=== PATIENT | female | born 1990 | race Caucasian/White ===

== ENCOUNTER 2018-03-23 09:42 | Emergency (ER) | payer OTHER ==
--- NOTE | 2018-03-23 10:27 | ED ---
Abdominal Pain/Female - HPI Summary HPI Summary: The pt is a 27 y/o female presenting to [facility] c/o L sided abdominal pain for two days worse today. The pain is rated 10/10 in intensity. She notes vomiting. The constant pain is aggravated by movement, sitting, and standing. She denies a hx of kidney stones. Her LNMP was in February 2018. The pt is on Depo Provera. - History of Current Complaint Chief Complaint: EDAbdPain Stated Complaint: ABD PAIN Time Seen by Provider: 03/23/18 10:21 Hx Obtained From: Patient, Family/Occ Therapy Asst - Mother ?: No Onset/Duration: Sudden Onset, Lasting Days - 2 days, Still Present, Worse Since - Today morning Severity Initially: Severe Severity Currently: Severe Pain Intensity: 10 Pain Scale Used: 0-10 Numeric Location: Flank - L flank Character: Sharp Aggravating Factor(s): Movement, Other: - Standing, sitting Associated Signs and Symptoms: Positive: Vomiting Allergies/Adverse Reactions: Allergies Allergy/AdvReac Type Severity Reaction Status Date / Time No Known Allergies Allergy Verified 03/23/18 12:07 PMH/Surg Hx/FS Hx/Imm Hx Previously Healthy: No Cardiovascular History: Denies: Hx Pacemaker/ICD History: Denies: Hx Kidney Stones Sensory History: Denies: Hx Hearing Aid Neurological History: Denies: Other Neuro Impairments/Disorders Psychiatric History: Reports: Other Psychiatric Issues/Disorders - Positive: claustrophobia Denies: Hx Panic Disorder - Cancer History Cancer Type, Location and Year: None reported - Surgical History Surgery Procedure, Year, and Place: BREAST REDUCTION. TUBES IN EARS - CHILD. ADNOIDS. GANGLION CYST - Lt HAND Xs 2 Infectious Disease History: No Infectious Disease History: Denies: Traveled Outside the [place] in Last 30 Days - Family History Known Family History: Positive: Cardiac Disease, Other - CA, Alzheimer's - Social History Occupation: Unemployed Lives: With Family Alcohol Use: None Substance Use Type: Reports: None Smoking Status (MU): Never Smoked Tobacco Review of Systems Negative: Fever Positive: Abdominal Pain, Vomiting All Other Systems Reviewed And Are Negative: Yes Physical Exam - Summary Physical Exam Summary: Appearance: The patient is well-nourished and in severe pain distress. Skin: The skin is warm and dry and skin color reflects adequate perfusion. HEENT: The head is normocephalic and atraumatic. The pupils are equal and reactive. The conjunctivae are clear and without drainage. Nares are patent and without drainage. Mouth reveals moist mucous membranes and the throat is without erythema and exudate. The external ears are intact. The ear canals are patent and without drainage. The tympanic membranes are intact. Neck: The neck is supple with full range of motion and non-tender. There are no carotid bruits. There is no neck vein distension. Respiratory: Chest is non-tender. Lungs are clear to auscultation and breath sounds are symmetrical and equal. Cardiovascular: Heart is regular rate and rhythm. There is no murmur or rub auscultated. There is no peripheral edema and pulses are symmetrical and equal. Abdomen: The abdomen is soft and tender to palpation in the LLQ. There are normal bowel sounds heard in all four quadrants and there is no organomegaly palpated. Musculoskeletal: There is no back tenderness noted. Extremities are non-tender with full range of motion. There is good capillary refill. There is no peripheral edema or calf tenderness elicited. Neurological: Patient is alert and oriented to person, place and time. The patient has symmetrical motor strength in all four extremities. Cranial nerves are grossly intact. Deep tendon reflexes are symmetrical and equal in all four extremities. Psychiatric: The patient has an appropriate affect and does not exhibit any anxiety or depression. Triage Information Reviewed: Yes Vital Signs On Initial Exam: Initial Vitals Temp Pulse Resp BP Pulse Ox 99.2 F 94 17 109/84 97 03/23/18 09:59 03/23/18 09:59 03/23/18 09:59 03/23/18 09:59 03/23/18 09:59 Vital Signs Reviewed: Yes Diagnostics - Vital Signs Vital Signs Temp Pulse Resp BP Pulse Ox 03/23/18 09:59 99.2 F 94 17 109/84 97 - Laboratory Result Diagrams: 03/23/18 10:56 03/23/18 10:56 Lab Statement: Any lab studies that have been ordered have been reviewed, and results considered in the medical decision making process. - CT Abd/ Pel CT CT Interpretation Completed By: Radiologist - IMPRESSION: Left hydronephrosis with 6 mm calculi in the proximal left ureter at the L3 transverse process level. Perinephric infiltration of fat is noted suggestive of calyceal rupture. The ED physician reviewed this radiology report. Re-Evaluation - Re-Evaluation First Eval Re-Evaluation Time: 11:35 Change: Improved - The pt is comfortable after receiving pain meds and is mildly tender in the LLQ. Second Eval Re-Evaluation Time: 12:50 Change: Improved - Discussed the Abd/ Pel Ct results with the pt. The pt feels much better. Third Eval Re-Evaluation Time: 13:13 Change: Worse Comment: The pt notes a return of the abd pain. Abdominal Pain Fem Course/Dx - Course Course Of Treatment: Ms. Stephenson presented complaining of severe left lower quadrant pain. She was bent over and the pain seemed to worsen when she tried to straighten up. She was equivocal and her history as to whether that movement aggravated the pain. She was very tender in the left lower quadrant. Labs were obtained and initially an ultrasound was ordered with a concern for torsion. However she improved dramatically with Toradol and Dilaudid and was only minimally tender if at all after. This pointed more to towards a stone and the ultrasound was canceled and a CT obtained. CT did reveal a proximal 6 mm left ureteral stone. Her UA did not show signs of infection. We do not have urology on-call today and given that she improved with initial pain medication and then again with Percocet when her pain returned, I recommended that she be discharged and follow as an outpatient. There is a reasonable chance that she will not be able to pass the stone and will need follow-up. - Diagnoses Provider Diagnoses: Kidney stones Discharge - Sign-Out/Discharge Documenting (check all that apply): Patient Departure - DC - Discharge Plan Condition: Stable Disposition: HOME Prescriptions: oxyCODONE/Acetamin 5/325 MG* [Percocet 5/325 TAB*] 1 tab PO Q6H PRN #20 tab MDD 4 PRN Reason: Pain Tamsulosin CAP* [Flomax CAP*] 0.4 mg PO DAILY #7 cap Patient Education Materials: Kidney Stones (ED) Referrals: Khurram Hill MD [Primary Care Provider] - 3 Days Rodolfo Foley MD [Medical Doctor] - As Soon As Possible Additional Instructions: Follow up with a urologist this week. Take 600mg Ibuprofen 3 times a day. - Billing Disposition and Condition Condition: STABLE Disposition: Home - Attestation Statements Document Initiated by Scribe: Yes Documenting Scribe: Abi Herr Provider For Whom Scribe is Documenting (Include Credential): Dr. Jake Cruz MD Scribe Attestation: I, Abi Herr , scribed for Dr. Jake Cruz MD on 03/23/18 at 2032. Scribe Documentation Reviewed: Yes Provider Attestation: The documentation as recorded by the scribeAbi accurately reflects the service I personally performed and the decisions made by me, Dr. Jake Cruz MD
[2018-03-23] MEDS ORDERED: NS 0.9% 1000 ML* 1,000 ML IV ONE (10:38)
[2018-03-23] MEDS ORDERED: Ondansetron INJ* 2 MG/ML VIAL IV ONE (10:40)
[2018-03-23] MEDS ORDERED: Ketorolac INJ* 30 MG/ML 1 ML VIAL IV PUSH ONE (10:40)
[2018-03-23] MEDS ORDERED: HYDROmorphone INJ* 1 MG/ML CARPUJECT SYRINGE IV ONE (10:40)
[2018-03-23] MEDS ORDERED: HYDROmorphone INJ1* 1 MG/ML SYRINGE ONE (10:46)
[2018-03-23 11:07] LABS: ABS Basophils 0 10^3/ul (0-0.2); ABS Eosinophils 0 10^3/ul (0-0.6); ABS Lymphocytes 1.1 10^3/ul (1.0-4.8); ABS Monocytes 0.8 10^3/ul (0-0.8); ABS Neutrophils 17.6 10^3/ul (1.5-7.7); ABS Nucleated RBC 0 10^3/ul; Eosinophil % 0 % (0-6); Hematocrit 39 % (35-47); Hemoglobin 12.6 g/dl (12.0-16.0); Lymphocyte % 5.5 % (25-47); Mean Corpuscular HGB Conc 33 g/dl (31-36); Mean Corpuscular Hemoglobin 27 pg (27-31); Mean Corpuscular Volume 84 fL (80-97); Mean Platelet Volume 8.6 um3 (7.4-10.4); Nucleated Red Blood Cells % 0; Platelet Count 307 10^3/ul (150-450); Red Cell Distribution Width 14 % (10.5-15); White Blood Count 19.6 10^3/ul (3.5-10.8)
[2018-03-23 11:23] LABS: EGFR Non-African American 55.5 (>60)
--- NOTE | 2018-03-23 12:24 | RAD ---
Indication: Left flank pain. CT of the abdomen and pelvis was performed without oral or IV contrast administration. Coronal and sagittal reconstructed images were obtained. There is left hydronephrosis with a calculi in the proximal left ureter measuring approximately 6 mm. This is located at approximately the level of the L3 transverse process. Perinephric infiltration of fat is noted suggestive of calyceal rupture. There is enlargement of the left kidney. The remainder of the left ureter is otherwise unremarkable. The right kidney demonstrates no hydronephrosis. The lung bases demonstrate no pleural fluid, nodules or masses. Heart is of normal size without evidence of pericardial effusion. Liver is normal in size. There are no focal lesions or intrahepatic ductal dilatation noted. The gallbladder demonstrates no calcified gallstones. No pericholecystic fluid or wall thickening is noted. The spleen is normal in size. The pancreas demonstrates no mass or pancreatic duct dilatation. The common duct is not dilated. No retroperitoneal lymphadenopathy is noted. No dilated loops of bowel are noted. CT of the pelvis demonstrates uterus and ovaries to be unremarkable. Urinary bladder is unremarkable. No hernias are noted. No dilated loops of bowel are noted. IMPRESSION: Left hydronephrosis with a 6 mm calculi in the proximal left ureter at the L3 transverse process level. Perinephric infiltration of fat is noted suggestive of calyceal rupture.
[2018-03-23] MEDS ORDERED: oxyCODONE/Acetamin 5/325 MG* TAB PO ONE (13:23)
[2018-03-23 13:49] LABS: Urine Appearance Cloudy; Urine Blood 2+ (Negative); Urine Color Yellow; Urine Ketones 1+ (Negative); Urine Protein Negative (Negative); Urine Red Blood Cell 2+(6-10/hpf) (Absent); Urine Specific Gravity 1.019 (1.010-1.030); Urine Urobilinogen Negative (Negative); Urine White Blood Cell Trace(0-5/hpf) (Absent)
[2018-03-23 14:50] VITALS: BP 128/87
== END 2018-03-23 14:49 | disposition home or self-care (01) ==
LOC: ED 09:42
DX: N20.0 Calculus of kidney (principal); R10.32 Left lower quadrant pain; R11.10 Vomiting, unspecified
CPT/HCPCS: 36415; 74176; 80053; 81003; 81015; 83605; 84702; 85025; 86140; 87086; 96374; 96375; 99282; A9270-GY; J1170; J1885; J2405

== ENCOUNTER 2018-04-27 12:42 | Day surgery (SDC) | payer OTHER ==
--- NOTE | 2018-04-23 23:11 | HP ---
CC: Dr. Khurram Hill * ADMITTING HISTORY AND PHYSICAL: DATE OF ADMISSION: 04/27/18 ADMITTING DIAGNOSES: 1. Calculus, left proximal ureter. 2. Left hydronephrosis. PLANNED PROCEDURE: Left stent insertion and shock wave lithotripsy of calculus , left ureter. SURGEON: Dr. Bishop. HISTORY OF PRESENT ILLNESS: Omaira Stephenson is a 27-year-old lady with a developmental disability, who has had episode of left-sided pain for the last 3 to 4 weeks secondary to a calculus in the left proximal ureter measuring 6-7 mm. PAST MEDICAL HISTORY: Unremarkable. PAST SURGICAL HISTORY: Significant for ear tubes as a child and breast reduction surgery. MEDICATIONS ON ADMISSION: None. ALLERGIES: No known drug allergies. FAMILY HISTORY: Negative for kidney stones. PHYSICAL EXAMINATION GENERAL: Reveals a pleasant healthy-appearing young lady. VITAL SIGNS: Blood pressure is 120/72, pulse 109 per minute (anxious), oxygen saturation 98% on room air. LUNGS: Clear bilaterally. CARDIOVASCULAR: Regular rate and rhythm. S1, S2. ABDOMEN: Soft with mild left flank tenderness. IMPRESSION: I had a detailed discussion with Omaira and her mother regarding the persistent left flank pain. I discussed the procedure of the left stent insertion and shock wave lithotripsy in detail. PLAN: Left stent insertion and shock wave lithotripsy of calculus, left ureter. [id number]/[facility] #: [id number] MTDD
[~2018-04-27 12:42] MED LIST: Buffered Lidocaine 0.9% SYRIN* 5 ML/SYR SYRINGE INTRADERM ONE; Buffered Lidocaine 0.9% SYRIN* 5 ML/SYR SYRINGE ONE; Dexamethasone TAB* 4 MG ONE; Dexamethasone TAB* 4 MG PO ONE; Famotidine IV* 10 MG/ML 2 ML (20 mg) IV ONE; Famotidine IV* 10 MG/ML 2 ML (20 mg) ONE; cefTRIAXone(*) 2 GM ADDV.VIAL IVPB ONE
[2018-04-27] MEDS ORDERED: oxyCODONE/Acetamin 5/325 MG* TAB PO PRN (14:09)
[2018-04-27] MEDS ORDERED: Naloxone* 0.4 MG/ML 1 ML VIAL IV PRN (14:09)
[2018-04-27] MEDS ORDERED: DiMENhydriNATE IV* 50 MG/ML VIAL IV PUSH PRN (14:09)
[2018-04-27] MEDS ORDERED: Ondansetron INJ* 2 MG/ML VIAL IV PRN (14:09)
[2018-04-27] MEDS ORDERED: fentaNYL* 50 MCG/ML 2 ML VIAL (100 MCG VIAL) IV PRN (14:09)
--- NOTE | 2018-04-27 14:12 | RAD ---
HISTORY: PREOP LEFT RENAL CALCULI ESWL COMPARISONS: April 15, 2018 VIEWS: Frontal views of the abdomen. FINDINGS: BOWEL: There is a nonobstructive bowel gas pattern. There is a large amount of stool within the colon. CALCULI: There is a stable calculus overlying the left hemiabdomen measuring up to 0.3 cm in size. BONES AND SOFT TISSUES: There are no osseous abnormalities. OTHER FINDINGS: The lung bases are clear. There is no subphrenic gas. IMPRESSION: STABLE LEFT NEPHROLITHIASIS
[2018-04-27] MEDS ORDERED: fentaNYL* 50 MCG/ML 2 ML VIAL (100 MCG VIAL) ONE ×3 (14:14→15:22)
[2018-04-27] MEDS ORDERED: Midazolam* 1 MG/ML 5 ML VIAL (5 MG) ONE (14:14)
[2018-04-27] MEDS ORDERED: Lidocaine 2% PF * 5 ML VIAL ONE (14:15)
[2018-04-27] MEDS ORDERED: Propofol* 10 MG/ML 20 ML BTL IV PUSH ONE (14:15)
[2018-04-27] MEDS ORDERED: Ondansetron INJ* 2 MG/ML VIAL ONE (14:15)
[2018-04-27] MEDS ORDERED: Iohexol 180 (CONTRAST) 10 ML SDV IV ONE (14:41)
[2018-04-27] MEDS ORDERED: Furosemide IV* 10 MG/ML 2 ML VIAL (20 MG) ONE (15:16)
[2018-04-27 17:02] VITALS: BP 128/87
--- NOTE | 2018-04-27 17:40 | RAD ---
INDICATION: Left renal calculus COMPARISON: Most recent KUB is dated June 27, 2018 TECHNIQUE: 3 views the abdomen were obtained. FINDINGS: Overlying the collecting system of the right kidney there are faint punctate calcifications. A 5 mm calcification overlying the left renal collecting system is not well visualized on this KUB. There are no large calcifications overlying either ureter or the urinary bladder. IMPRESSION:FAINT PUNCTATE CALCIFICATIONS ARE SEEN OVERLYING THE RIGHT RENAL COLLECTING SYSTEM.
--- NOTE | 2018-04-27 23:37 | OP ---
CC: Dr. Khurram Hill * DATE OF OPERATION: 04/27/18 - [facility] DATE OF : 89 SURGEON: Pedro Bishop MD ANESTHESIOLOGIST: Dr. Estrella. ANESTHESIA: General. PRE-OP DIAGNOSIS: Calculus, left proximal ureter. POST-OP DIAGNOSIS: Calculus, left proximal ureter. OPERATIVE PROCEDURE: Shock wave lithotripsy of calculus, left ureter. COMPLICATIONS: None. POSTOPERATIVE CONDITION: Stable. INDICATIONS: Omaira Stephenson is a 27-year-old lady who has had a persistent calculus in the left proximal ureter causing intermittent left flank pain. She is now being brought in for lithotripsy. DESCRIPTION OF PROCEDURE: After induction of general anesthesia, the patient was placed in lithotripsy table in supine position. The calculus which was in the left proximal ureter was identified using fluoroscopy. Shock wave lithotripsy was commenced at a rate of 60 shocks per minute. Periodic imaging revealed good localization and a total of 2000 shocks were administered. I was prepared to do a left stent insertion if necessary, but due to near complete fragmentation of the calculus on fluoroscopy I elected to hold off on a stent insertion and the patient tolerated the procedure satisfactorily and was transferred back to the recovery area in stable condition. [id number]/[facility]PS #: [id number] MTDD
== END 2018-04-27 17:14 | disposition home or self-care (01) ==
LOC: OR 12:42
PROVIDERS: ATTEND Urology
DX: N13.2 Hydronephrosis with renal and ureteral calculous obstruction (principal); F79 Unspecified intellectual disabilities; E66.9 Obesity, unspecified
CPT/HCPCS: 74018; 81025; J0696; J1940; J2250; J2405; J2704; J3010; J8540

== ENCOUNTER → 2018-12-11 07:10 | Day surgery (SDC) | payer OTHER ==
--- NOTE | 2018-12-03 18:51 | HP ---
CC: Dr. Khurram Hill * ADMITTING HISTORY AND PHYSICAL: DATE OF ADMISSION: 12/11/18 ADMITTING DIAGNOSIS: Calculus, left proximal ureter. PLANNED PROCEDURE: Left ureteroscopy, possible laser, and stent replacement. SURGEON: Dr. Bishop. HISTORY OF PRESENT ILLNESS: Omaira Stephenson is a 28-year-old lady with a history of left renal and ureteral calculi. She had undergone shockwave lithotripsy in April of 2018 and then had subsequently presented with severe left flank pain and had undergone left stent insertion on 10/20/18. Recent x-ray revealed a persistent calculus in the left proximal ureter and she is now being brought in for left ureteroscopy, possible laser, and stent replacement. PAST MEDICAL HISTORY: Significant for developmental disability. PAST SURGICAL HISTORY: Significant for left stent insertion, shockwave lithotripsy of left renal calculus, bilateral breast reduction surgery, and placement of ear tubes as a child. MEDICATIONS ON ADMISSION: None. ALLERGIES: No known drug allergies. FAMILY HISTORY: Negative for stones. SOCIAL HISTORY: Smoking history: She is a nonsmoker. REVIEW OF SYSTEMS: She denies any chest pain or shortness of breath. There is no history of diabetes mellitus or any other major systemic illness. PHYSICAL EXAMINATION GENERAL: Reveals a pleasant, young, anxious lady, accompanied by her mother. VITAL SIGNS: Blood pressure is 120/72, pulse 109 per minute and regular, oxygen saturation 98% on room air, temperature 96.5. LUNGS: Clear bilaterally. CARDIOVASCULAR: Regular rate and rhythm. S1, S2. ABDOMEN: Soft with left flank tenderness. IMPRESSION: A 28-year-old with calculus left proximal ureter. PLAN: Planned procedure is left ureteroscopy, possible laser, and stent replacement. [id number]/[facility] #: [id number] [facility]
[~2018-12-11 07:10] MED LIST changes: -Buffered Lidocaine 0.9% SYRIN* 5 ML/SYR SYRINGE INTRADERM ONE; -Buffered Lidocaine 0.9% SYRIN* 5 ML/SYR SYRINGE ONE; +Buffered Lidocaine 1% SYRIN* 1 ML/SYRINGE INTRADERM ONE; +DiMENhydriNATE IV* 50 MG/ML VIAL IV PUSH PRN; +HYDROmorphone INJ1* 1 MG/ML SYRINGE IV PRN; +Iohexol 180 (CONTRAST) 10 ML SDV IV ONE; +KETAMINE HCL* 50 MG/ML 10 ML VIAL ONE; +Lactated Ringers 1000 ML Bag* 1,000 ML IV SCH; +Levalbuterol 0.63MG/3ML NEB* UNIT OF USE INH ONE; +Lidocaine 2% PF * 5 ML VIAL ONE; +Metoprolol Tartrate IV* 1 MG/ML 5 ML VIAL ONE; +Midazolam* 1 MG/ML 5 ML VIAL (5 MG) ONE; +Naloxone* 0.4 MG/ML 1 ML VIAL IV PRN; +Ondansetron ODT TAB* 4 MG ONE; +Ondansetron TAB* 4 MG PO ONE; +PROCHLORPERAZINE INJ 5 MG/ML 2 ML VIAL IV PRN; +Propofol* 10 MG/ML 20 ML BTL ONE; +Scopolamine 1.5 mg* PATCH TRANSDERM PRN; +Scopolamine PATCH Remove* 1 NOTE MISC PATCH OFF ONE; +fentaNYL* 50 MCG/ML 2 ML VIAL (100 MCG VIAL) ONE; +oxyCODONE/Acetamin 5/325 MG* TAB ONE; +oxyCODONE/Acetamin 5/325 MG* TAB PO PRN
[2018-12-11] MEDS: fentaNYL* 50 MCG/ML 2 ML VIAL (100 MCG VIAL) IV PRN ×3 (10:00→10:19)
[2018-12-11 11:04] VITALS: BP 118/83
--- NOTE | 2018-12-11 23:05 | OP ---
OPERATIVE SUMMARY: DATE OF OPERATION: 12/11/18 SURGEON: Dr. Bishop. ANESTHESIOLOGIST: Dr. Louis. ANESTHESIA: General. PRE-OP DIAGNOSES: 1. Left hydronephrosis. 2. Calculus, left proximal ureter. POST-OP DIAGNOSES: 1. Left hydronephrosis. 2. Calculus, left proximal ureter. OPERATIVE PROCEDURES: 1. Cystoscopy. 2. Left stent removal. 3. Left retrograde pyelogram. 4. Left ureteroscopy and stone extraction and left stent insertion. COMPLICATIONS: None. POSTOPERATIVE CONDITION: Stable. STENT USED: An 8-Mongolian stent, left ureter. OPERATIVE FINDINGS: Partially fragmented calculus, left ureter with persistent 5 to 6 mm fragment an d additional smaller fragment in the left ureter causing left hydronephrosis. INDICATIONS: Omaira Stephenson is a 28-year-old lady who had previously undergone lithotripsy for a calcu angie in the left kidney. She had then developed hydronephrosis secondary to a large obstructing fragm ent and had undergone urgent left stent insertion. She is now being brought in for ureteroscopy for definitive treatment of the calculus. DESCRIPTION OF PROCEDURE: After induction of general anesthesia, the patient was placed on the opera ting table in dorsal lithotomy position. Sequential compression devices were in place and functionin g. Initial cystoscopy revealed a normal- appearing bladder. The previously placed stent was removed . Left retrograde pyelogram revealed left hydronephrosis. A 6-Mongolian semi-rigid ureteroscope was in troduced and advanced under direct vision. In the proximal ureter, there was approximately 6 mm calc ulus with many smaller additional fragments noted adjacent to it. Using a 3-prong grasper, the large st fragment, which was about 6 mm, was carefully removed and sent for analysis. All of the smaller f ragments were also removed and at the end, I could not visualize any sizeable fragment in the ureter. The ureteroscope was carefully withdrawn under direct vision and an 8-Mongolian stent was introduced an d positioned under fluoroscopy with good proximal and distal positioning obtained. My plan is to silvia ve the stent in for a few weeks since she had the calculus impacted in that location for a while, whi ch puts her at higher risk for a stricture. The patient tolerated the procedure satisfactorily and was transferred back to the recovery area in s table condition. It should be noted that due to the patient's age and gender minimal fluoroscopy was used and also ext ra shielding was used on the back, especially to cover the right side, and care was taken to keep use of the fluoroscopic services to a minimum. [id number]/[facility] #: [id number]
== END | disposition home or self-care (01) ==
LOC: OR 07:10
PROVIDERS: ATTEND Urology
DX: N13.2 Hydronephrosis with renal and ureteral calculous obstruction (principal); J45.909 Unspecified asthma, uncomplicated
CPT/HCPCS: 74018; 74420; 81025; 82365; 88300; A9270-GY; C1876; J0696; J2250; J2704; J3010; J3490; J8540

== ENCOUNTER 2019-02-24 04:48 | Inpatient (IN) | payer OTHER ==
[2019-02-24] MEDS ORDERED: Morphine 4 MG/ML VIAL (1 ml) 4 MG/ML VIAL IV ONE ×2 (05:20→07:39)
[2019-02-24] MEDS ORDERED: Ketorolac INJ* 30 MG/ML 1 ML VIAL IM ONE (05:20)
--- NOTE | 2019-02-24 05:25 | ED ---
Abdominal Pain/Female - HPI Summary HPI Summary: A 28 y/o female brought in by [facility] ambulance and accompanied by her mother presents to [facility] with a chief complaint of abdominal pain since around 00:00 today. The patient has a Hx of kidney stones and reports current bilateral flank pain. She also notes that she has a Hx of a smaller gallstone. Per mother , the patient has had some N/V. - History of Current Complaint Chief Complaint: EDAbdPain Stated Complaint: STOMACH/BACK PAIN PER MOTHER Time Seen by Provider: 02/24/19 05:18 Hx Obtained From: Patient, Family/Avionics Systems Repairer, EMS Onset/Duration: Sudden Onset, Lasting Hours, Still Present Timing: Constant Severity Initially: Severe Severity Currently: Severe Pain Intensity: 10 Pain Scale Used: 0-10 Numeric Location: Flank Radiates: No Character: Other: - unable to describe Aggravating Factor(s): Nothing Alleviating Factor(s): Nothing Associated Signs and Symptoms: Positive: Nausea, Vomiting. Negative: Fever Allergies/Adverse Reactions: Allergies Allergy/AdvReac Type Severity Reaction Status Date / Time No Known Allergies Allergy Verified 12/11/18 07:44 Home Medications: Home Medications NK [No Home Medications Reported] 02/24/19 [History Confirmed 02/24/19] PMH/Surg Hx/FS Hx/Imm Hx Cardiovascular History: Denies: Hx Pacemaker/ICD Respiratory History: Reports: Hx Asthma - RESCUE INHALER History: Reports: Hx Kidney Stones - CURRENTLY. LT STENT 10/20/18. Sensory History: Reports: Hx Contacts or Glasses - GLASSES Denies: Hx Hearing Aid Opthamlomology History: Reports: Hx Contacts or Glasses - GLASSES Neurological History: Reports: Hx Seizures - ONLY A , Other Neuro Impairments/Disorders - MOM REPORT LEARNING DISABILITY- TROUBLE UNDERSTANDING WHAT IS BEING TOLD Psychiatric History: Reports: Other Psychiatric Issues/Disorders - Positive: claustrophobia Denies: Hx Panic Disorder - Cancer History Cancer Type, Location and Year: None reported - Surgical History Surgery Procedure, Year, and Place: BREAST REDUCTION. TUBES IN EARS - CHILD. ADENOIDS. GANGLION CYST - Lt HAND Xs 2. LEFT STENT [facility] 2019 Hx Anesthesia Reactions: No Infectious Disease History: No Infectious Disease History: Denies: Traveled Outside the [place] in Last 30 Days - Family History Known Family History: Positive: Cardiac Disease, Other - CA, Alzheimer's - Social History Alcohol Use: None Substance Use Type: Reports: None Smoking Status (MU): Never Smoked Tobacco Have You Smoked in the Last Year: No Review of Systems Negative: Fever Positive: Abdominal Pain, Vomiting, Nausea Positive: flank pain - bilateral All Other Systems Reviewed And Are Negative: Yes Physical Exam - Summary Physical Exam Summary: Constitutional: Well-developed, Well-nourished, Appears to be uncomfortable. Alert. (-) Distressed Skin: Warm, Dry HENT: Normocephalic; Atraumatic Eyes: Conjunctiva normal Neck: Musculoskeletal ROM normal neck. (-) JVD, (-) Stridor, (-) Tracheal deviation Cardio: Rhythm regular, rate normal, Heart sounds normal; Intact distal pulses; The pedal pulses are 2+ and symmetric. Radial pulses are 2+ and symmetric. (-) Murmur Pulmonary/Chest wall: Effort normal. (-) Respiratory distress, (-) Wheezes, (-) Rales Abd: Soft, (+) bilateral CVA tenderness, (-) Distension, (-) Guarding, (-) Rebound Musculoskeletal: (-) Edema Lymph: (-) Cervical adenopathy Neuro: Alert, Oriented x3 Psych: anxious Triage Information Reviewed: Yes Vital Signs On Initial Exam: Initial Vitals Temp Pulse Resp BP Pulse Ox 98.2 F 95 18 189/106 98 02/24/19 04:56 02/24/19 04:56 02/24/19 04:56 02/24/19 04:56 02/24/19 04:56 Vital Signs Reviewed: Yes Diagnostics - Vital Signs Vital Signs Temp Pulse Resp BP Pulse Ox 02/24/19 04:56 98.2 F 95 18 189/106 98 - Laboratory Result Diagrams: 02/24/19 05:37 02/25/19 05:41 Lab Statement: Any lab studies that have been ordered have been reviewed, and results considered in the medical decision making process. Abdominal Pain Fem Course/Dx - Course Course Of Treatment: A 28 y/o female brought in by [facility] ambulance and accompanied by her mother presents to [facility] with a chief complaint of abdominal pain since around 00:00 today. The patient has a Hx of kidney stones and reports current bilateral flank pain. The physical exam revealed that the patient was very anxious and appeared to be uncomfortable, bilateral CVA tenderness. In the ED course the patient was given Sodium Chloride IV, Toradol IV and Morphine IV. Blood work and chemistries obtained. WBC of 20.8 at 05:37. This patient will be signed out from Dr. Lamb to Dr. Felder upon shift change at 07:00 02/24/[address] abdomen/pelvis. - Diagnoses Provider Diagnoses: Cholecystitis Discharge - Sign-Out/Discharge Documenting (check all that apply): Sign-Out Patient Signing out patient TO: Torres Felder - pending CT abdomen/pelvis Patient Received Moderate/Deep Sedation with Procedure: No - Discharge Plan Condition: Stable Disposition: ADMITTED TO [facility] - Billing Disposition and Condition Condition: STABLE Disposition: Admitted to [facility] - Attestation Statements Document Initiated by Anton: Yes Documenting Scribe: Pastor Brito Provider For Whom Anton is Documenting (Include Credential): Yue Howell MD Scribe Attestation: Pastor Bruce, scribed for Yue Lamb MD on 02/25/19 at 0747. Scribe Documentation Reviewed: Yes Provider Attestation: The documentation as recorded by the Pastor hobbs accurately reflects the service I personally performed and the decisions made by , Yue Lamb MD Status of Scribe Document: Viewed
[2019-02-24 05:48] LABS: ABS Lymphocytes 1.7 10^3/ul (1.0-4.8); ABS Monocytes 0.7 10^3/ul (0-0.8); ABS Neutrophils 18.3 10^3/ul (1.5-7.7); Eosinophil % 0.1 %; Hematocrit 39 % (35-47); Hemoglobin 12.7 g/dL (12.0-16.0); Lymphocyte % 8.1 %; Mean Corpuscular HGB Conc 33 g/dL (31-36); Mean Corpuscular Hemoglobin 27 pg (27-31); Mean Corpuscular Volume 82 fL (80-97); Mean Platelet Volume 7.7 fL (7.4-10.4); Platelet Count 403 10^3/uL (150-450); Red Blood Count 4.77 10^6 /uL (3.70-4.87); Red Cell Distribution Width 15 % (10-15); White Blood Count 20.8 10^3/uL (3.5-10.8)
[2019-02-24 06:04] LABS: ALT 10 U/L (7-52); AST 15 U/L (13-39); Albumin 4.3 g/dL (3.2-5.2); Alkaline Phosphatase 111 U/L (34-104); Anion Gap 9 mmol/L (2-11); BUN/Creatinine Ratio 9.2 (8-20); Blood Urea Nitrogen 8 mg/dL (6-24); C Reactive Protein 19.98 mg/L (<8.01); CO2 Carbon Dioxide 23 mmol/L (22-32); Calcium 9.2 mg/dL (8.6-10.3); Chloride 106 mmol/L (101-111); EGFR African American 93.8 (>60); EGFR Non-African American 77.5 (>60); Globulin 4.3 g/dL (2-4); Glucose 122 mg/dL (70-100); Potassium 3.7 mmol/L (3.5-5.0); Sodium 138 mmol/L (135-145); Total Protein 8.6 g/dL (6.4-8.9)
[2019-02-24] MEDS ORDERED: NS 0.9% 1000 ML** 1,000 ML IV.FLUID IV ONE (06:04)
[2019-02-24 06:09] LABS: HCG Pregnancy < 0.60 mIU/mL
--- NOTE | 2019-02-24 07:14 | ED ---
Progress - Progress Note Progress Note: This pt is a sign out from Dr. Arroela to Dr. Felder at shift change [address] A/P. - Results/Orders Results/Orders: CT A/P shows the followin. Cholecystitis. Dilated common bile duct. 2. No stones in the kidneys, ureters, or urinary bladder. No hydronephrosis or hydroureter. ED physician has reviewed this report. Gallbladder US found the following: Dilated gallbladder with multiple gallstones, gallbladder wall measuring 0.6 cm and is positive sonographic Hoffmann's sign. ED physician has reviewed this report. Course/Dx - Course Course Of Treatment: This pt is a sign out from Dr. Arreola to Dr. Felder at shift change 0700 02/24/[address] A/P. The pt complained of intense pain and was given a one time dose of morphine 4mg IV at 0739. CT A/P shows the followin. Cholecystitis. Dilated common bile duct. 2. No stones in the kidneys, ureters, or urinary bladder. No hydronephrosis or hydroureter. Gallbladder US found the following: Dilated gallbladder with multiple gallstones, gallbladder wall measuring 0.6. cm and is positive sonographic Hoffmann's sign. Dr. Mcqueen, surgery, was consulted at [address] A/P findings to discuss a surgery to remove the pt's gallbladder. He will evaluate the pt in an hour. Dr. Mcqueen stated at 1015 that the pt required a gallbladder US before he could make a final decision. Case discussed with hospitalist. I discussed results with patient. The patient agrees with this plan. This pt was admitted to [facility] with a Dx of Cholecystitis. - Diagnoses Provider Diagnoses: Cholecystitis - Provider Notifications Discussed Care Of Patient With: Goldy Mcqueen Time Discussed With Above Provider: 08:28 Instructed by Provider To: Admit As Inpatient - Dr. Mcqueen, surgery, was consulted at [address] A/P findings to discuss a surgery to remove the pt's gallbladder. He will evaluate the pt in an hour. Dr. Mcqueen stated at 1015 that the pt required a gallbladder US before he could make a final decision. The pt was admitted to [facility] by Dr. Mcqueen for further investigation including a possible surgery. Admit/Transition Orders Completed By ED Provider: Yes Discharge - Sign-Out/Discharge Documenting (check all that apply): Patient Departure - admitted Patient Received Moderate/Deep Sedation with Procedure: No - Discharge Plan Condition: Stable Disposition: ADMITTED TO [facility] - Billing Disposition and Condition Condition: STABLE Disposition: Admitted to [facility] - Attestation Statements Document Initiated by Scribe: Yes Documenting Scribe: Bk Carballo Provider For Whom Scribe is Documenting (Include Credential): Torres Felder MD Scribe Attestation: Bk Bruce, scribed for Torres Felder MD on 02/24/19 at 1803. Scribe Documentation Reviewed: Yes Provider Attestation: The documentation as recorded by the Bk hobbs accurately reflects the service I personally performed and the decisions made by Torres castillo MD Status of Scribe Document: Viewed
[2019-02-24] MEDS ORDERED: Piperacillin/Tazobac ADVAN(*) 3.375 GM in NS 0.9% 100 ML* 100 ML IVPB ONE (08:28)
[2019-02-24 10:06] LABS: Urine Appearance Cloudy; Urine Bilirubin Negative (Negative); Urine Blood Negative (Negative); Urine Color Yellow; Urine Glucose Negative (Negative); Urine Ketones Trace (Negative); Urine Nitrite Negative (Negative); Urine Protein Negative (Negative); Urine Specific Gravity 1.013 (1.010-1.030); Urine Urobilinogen Negative (Negative)
[2019-02-24] MEDS ORDERED: fentaNYL* 50 MCG/ML 2 ML VIAL (100 MCG VIAL) IV SLOW PU ONE (11:25)
--- NOTE | 2019-02-24 11:48 | HP ---
CC: [facility]; CRISTOBAL Ferreira; [facility], Dr. Cielo Kovacs; Dr. Pedro zelaya HISTORY AND PHYSICAL: DATE OF ADMISSION: 02/24/19 PRIMARY CARE DOCTOR: CRISTOBAL Paul HISTORY OF PRESENT ILLNESS: I was contacted by the emergency room staff regarding Ms. Stephenson, a 28-ye ar-old female, who presented with 1-day history of epigastric pain accompanied with nausea and vomiti ng. The pain started yesterday afternoon when the patient and her mother were shopping. It worsened by ev ening. She was unable to sleep and by 4 a.m., called the ambulance, presented to the emergency room. Pain was not relieved with movement or by lying still. Pain relieved minimally with narcotics. Cu rrently, the pain does radiate to the back and the back is the primary discomfort. She describes the pain in the upper abdomen, nonradiating to the shoulder or chest, but only to the back. The patient had similar symptoms in the past, mostly this year, where she was diagnosed with nephroli thiasis and went to the operating room on 2 occasions for this purpose. Surgery was consulted on adm ission in October and the patient was noted to have both kidney stones and gallstones. Ultrasound was reviewed at that time and showed gallstone at the neck of the gallbladder. The patient does not define any exacerbating features or alleviating features. Again, it is accompani ed with nausea, vomiting, decreased appetite, although the patient's appetite is returning at this po int. No constipation or diarrhea. PAST MEDICAL HISTORY: Kidney stones, asthma, and developmental delay. PAST SURGICAL HISTORY: Bilateral breast reduction, tympanoplasty tubes as a child, and the lithotrip sy earlier this year. MEDICATION LIST: Reviewed and includes no medications. ALLERGIES: She has no known drug allergies. FAMILY HISTORY: Obtained. SOCIAL HISTORY: Nonsmoker. Lives with her mother, developmental delay. Denies IV drug abuse. She is unemployed. REVIEW OF SYSTEMS: On review of systems, no shortness of breath or chest pain. No jaundice-type sym ptoms. No fever, but she was experiencing chills. No shortness of breath or chest pain. No cardiov ascular disease. Abdominal pain as described. Decreased appetite. No dysuria or hematuria. No endo crine disorders. No bleeding or clotting disorders. Developmental delay, but does not see a psychia trist. No headache. PHYSICAL EXAMINATION GENERAL: Alert and oriented x3, in mild distress. VITAL SIGNS: She is afebrile. Her heart rate is in 90s to 100s. Normotensive. O2 sat 100 on room a ir. HEAD, EYES, EARS, NOSE, AND THROAT: Normocephalic, atraumatic. Sclerae anicteric. Mucous membranes are dry. NECK: No lymphadenopathy. ABDOMEN: Soft, obese, tender diffusely, but mostly in the right upper quadrant and epigastrium. Que stionable positive Hoffmann's, although the patient is significantly moving around. She has CVA tender ness bilaterally. She has no hernias or masses. RECTAL EXAM: Not performed. EXTREMITIES: Within normal limits without calf tenderness. VAGINAL EXAM: Not performed. DIAGNOSTIC STUDIES/LAB DATA: Labs reviewed show white count of 20. Chemistry panel shows elevated CRP, normal bilirubin, mildly elevated alk phos. The patient's urinalysis was normal with trace keto richard. The patient underwent a CAT scan of the abdomen and pelvis, noncontrast. These images as well as rep ort reviewed. No evidence of kidney stone or hydronephrosis. The patient did have notable inflammato ry changes around the gallbladder with thickening. Common bile duct measured 1.5 cm, but tapers to m ore normal caliber. IMPRESSION: A 28-year-old female with significant pain, who shows signs of systemic inflammatory res ponse syndrome with tachycardia and elevated white blood cell count, who may be suffering with acute cholecystitis. The differential diagnosis does include nephrolithiasis. Recommended a urinalysis an d it was described as above. Also, we would like the patient to undergo an ultrasound of the gallbla dder just to see regarding gallstones. I did review ultrasound from earlier this year that did show gallstones and overall, I do believe the patient is suffering with acute cholecystitis, but we will c ontinue additional workup and look towards surgical intervention with laparoscopic cholecystectomy if need be. This was discussed with both patient and mother. Her mother who is her caregiver had to g o home to get some sleep, but we will be discussing with her the plan going forward. [id number]/[facility] #: [id number]
[2019-02-24] MEDS ORDERED: Ondansetron INJ* 2 MG/ML VIAL IV PRN (12:02)
[2019-02-24] MEDS: HYDROmorphone INJ1* 1 MG/ML SYRINGE IV SLOW PU PRN ×2 (12:52→13:45)
[2019-02-24] MEDS ORDERED: Lactated Ringers 1000 ML Bag* 1,000 ML IV SCH ×2 (13:00→14:00)
[2019-02-24] MEDS ORDERED: Buffered Lidocaine 1% SYRIN* 1 ML/SYRINGE INTRADERM ONE (13:02)
[2019-02-24] MEDS ORDERED: Midazolam* 1 MG/ML 2 ML VIAL (2 MG) ONE (13:58)
[2019-02-24] MEDS ORDERED: fentaNYL* 50 MCG/ML 2 ML VIAL (100 MCG VIAL) ONE ×3 (13:58→16:02)
[2019-02-24] MEDS ORDERED: Famotidine IV* 10 MG/ML 2 ML (20 mg) ONE (14:02)
--- NOTE | 2019-02-24 14:03 | PN ---
Progress Note - Progress Note Date of Service: 02/24/19 SOAP: Subjective: Pt seen and and additional workup evaluated. normal UA US: c/w acute jaspal Continued abdo pain Objective: Temp Pulse Resp BP Pulse Ox 98.3 F 86 16 161/94 98 02/24/19 13:36 02/24/19 13:36 02/24/19 13:45 02/24/19 13:36 02/24/19 13:36 Abdo: soft/ tender Assessment: acute cholecystitis; dilated CBD, but normal TB Plan: laparoscopic cholecystectomy; R/B/A discussed and pt wishes to proceed admit overnight labs in am
[2019-02-24] MEDS ORDERED: Bupivacaine 0.25% W/EPI* 10 ML SDV ONE (14:48)
[2019-02-24] MEDS ORDERED: Lidocaine 2% PF * 5 ML VIAL ONE (15:15)
[2019-02-24] MEDS ORDERED: Dexamethasone IV* 4 MG/ML 1 ML (4 MG) ONE ×2 (15:15→15:48)
[2019-02-24] MEDS ORDERED: Cisatracurium* 2 MG/ML MDV 5 ML ONE (15:15)
[2019-02-24] MEDS ORDERED: Propofol* 10 MG/ML 20 ML BTL ONE ×2 (15:15→16:02)
[2019-02-24] MEDS ORDERED: Succinylcholine* 20 MG/ML 10 ML VIAL ONE (15:15)
[2019-02-24] MEDS ORDERED: Labetalol IV* 5 MG/ML 20 ML VIAL ONE (15:36)
[2019-02-24] MEDS ORDERED: DiMENhydriNATE IV* 50 MG/ML VIAL IV PUSH PRN (15:40)
[2019-02-24] MEDS ORDERED: fentaNYL* 50 MCG/ML 2 ML VIAL (100 MCG VIAL) IV PRN (15:40)
[2019-02-24] MEDS ORDERED: PROCHLORPERAZINE INJ 5 MG/ML 2 ML VIAL IV PRN (15:40)
[2019-02-24] MEDS ORDERED: Acetaminophen TAB* 325 MG PO PRN ×2 (15:40→18:59)
[2019-02-24] MEDS ORDERED: Naloxone* 0.4 MG/ML 1 ML VIAL IV PRN (15:40)
[2019-02-24] MEDS ORDERED: Dexmedetomidine* 200 MCG/2 ML 2 ML VIAL ONE (16:16)
[2019-02-24] MEDS ORDERED: Ketorolac INJ* 30 MG/ML 1 ML VIAL ONE (16:55)
--- NOTE | 2019-02-24 17:13 | OP ---
Operative Report - Blank - Operative Report Date of Operation: 02/24/19 Note: Brief Operative Note Preop Dx: acute cholecystitis Postop Dx: acute cholecystitis Procedure: lap cholecystectomy Anesthesia: General Surgeon: Richar Heel Room Supervisor: REED Pineda Fluids: 1500 cc EBL: 100 cc Specimen: gallbladder; cholelithiasis Drains: none Findings: as above Complications: none
[2019-02-24] MEDS ORDERED: Ibuprofen TAB* 600 MG PO PRN (19:00)
[2019-02-24] MEDS: NS 0.9% 1000 ML** 1,000 ML IV SCH (19:21)
[2019-02-24] MEDS: oxyCODONE/Acetamin 5/325 MG* TAB PO PRN (20:16)
[2019-02-24] MEDS: Piperacillin/Tazobactam VIAL*) 3.375 GM in NS 0.9% 100 ML* 100 ML IVPB SCH ×2 (20:17)
--- NOTE | 2019-02-24 21:54 | OP ---
CC: Dr. Cielo Kovacs; Dr. Pedro Bishop * DATE OF OPERATION: 02/24/19 - ROOM #346 DATE OF : [birth year]. PRIMARY CARE DOCTOR: Dr. Cielo Kovacs. SURGEON: Goldy Mcqueen M.D. DIRECTOR OF PRODUCT MANAGEMENT: CRISTOBAL Bejarano. ANESTHESIOLOGIST: Dr. Boland. ANESTHESIA: General. PRE-OP DIAGNOSIS: Acute cholecystitis. POST-OP DIAGNOSIS: Acute cholecystitis. OPERATIVE PROCEDURE: Laparoscopic cholecystectomy. ESTIMATED BLOOD LOSS: 100 cc. FLUIDS: 1500 cc of crystalloid fluid given. SPECIMEN: Gallbladder. DRAINS: None. COMPLICATIONS: None. INDICATIONS: The patient was identified in the preoperative area. I discussed the case with her, going over the risks, benefits, and alternatives of the laparoscopic cholecystectomy. I spoke of the possible complication, which include, but were not limited to bleeding, infection, bile leak, common bile duct injury or retained common bile duct stones, need for open procedure or additional procedures. Consent was signed. I did discuss this with her mother as well. DESCRIPTION OF PROCEDURE: She was then marked, brought to the operating room, placed on the operating room table in the supine position. Preoperative antibiotics were given. Sequential devices were placed on bilateral lower extremities. The patient had already received antibiotics while on the floor. General anesthesia was delivered. The patient's abdomen was prepped and draped in standard surgical fashion. Time-out was performed. Folds of the umbilicus were elevated anteriorly and a Veress needle inserted into the abdominal cavity, which was then allowed to insufflate to a pressure of 15 mmHg. The patient tolerated the insufflation well. We incised over the Veress needle, which was then removed, and a 12-mm optical trocar was then inserted. Laparoscope was then inserted through this. There was no evidence of injuries from the trocar insertion or from the Veress needle. Review of the abdomen showed no bleeding. The omentum was adhered to be what appeared to be the gallbladder. Additional trocars were then placed in the following position: A 12-mm in the subxiphoid area, two 5-mm along the right costal margin. The omentum was bluntly dissected off of the fundus of the gallbladder. Bleeding would continue with all of this dissection. We were unable to grasp the fundus of the gallbladder. For this reason, we drained it with an aspiration needle taking about 15 cc of thick bile off. Once we could grasp the fundus, we elevated anteriorly. An additional blunt and sharp dissection was carried out to free the omentum down to the body and then what appeared to be the fundus of the gallbladder. Once fundus was grasped, we scissored through some of the thick peritoneum to see the gallbladder wall on the lateral side. This allowed us to pull this up and out in a better fashion. We could not see common bile duct at this point and did not get a critical view. For this reason, we continued our dissection taking the peritoneum off the medial aspect and the lateral aspect. At one point, we did get behind the gallbladder and then we were able to isolate the artery, which was taken with LigaSure device. Once we got behind the gallbladder at the mid portion of it, we dissected down to where we could see only one structure entering the gallbladder. Once this was identified as the cystic duct, we triply clipped this this duct and then removed the gallbladder from the liver bed. We did enter into the gallbladder through the posterior aspect and a large stone was released. We broke this up to take it out through the 12-mm port. Next, when the gallbladder was freed from the liver bed, we placed the endoscopic retrieval bag and brought out through the subxiphoid incision. We picked up the pieces of the stone. The one large stone that had fallen out, we had to take it out in pieces. We also used suction and irrigation to remove some of the debris. We irrigated and again hemostasis with cautery as needed, and we suctioned out the full gallbladder fossa until we saw no bile and then no bleeding. Cystic duct stumps appeared intact. We then placed a portion of Surgicel on the liver bed and allowed the abdomen to collapse. Trocars were removed under direct vision, and gallbladder had already been removed. We then closed the umbilical port site with a 0-Vicryl suture in a simple fashion using 2 stitches and then closed all skin incisions with 4-0 Monocryl subcuticular sutures. Steri-Strips and sterile dressing were applied. The patient tolerated the procedure well and was awoken up in the OR and transferred to the PACU in stable condition. [id number]/[facility] #: [id number] [facility] HOSPITALMyriam
[2019-02-25] MEDS: oxyCODONE/Acetamin 5/325 MG* TAB PO PRN ×4 (00:39→13:28)
[2019-02-25] MEDS: Piperacillin/Tazobactam VIAL*) 3.375 GM in NS 0.9% 100 ML* 100 ML IVPB SCH ×2 (04:53→12:59)
[2019-02-25 06:12] LABS: Albumin 3.7 g/dL (3.2-5.2); BUN/Creatinine Ratio 9.1 (8-20); Calcium 9.3 mg/dL (8.6-10.3); EGFR Non-African American 89.3 (>60); Globulin 3.8 g/dL (2-4); Potassium 3.8 mmol/L (3.5-5.0); Total Bilirubin 0.5 mg/dL (0.2-1.0); Total Protein 7.5 g/dL (6.4-8.9)
[2019-02-25] MEDS: NS 0.9% 1000 ML** 1,000 ML IV SCH (08:48)
--- NOTE | 2019-02-25 10:58 | DS ---
CC: Dr. Cielo Kovacs; [facility] DISCHARGE SUMMARY: DATE OF ADMISSION: 02/24/19 DATE OF DISCHARGE: 02/25/19 HISTORY AND HOSPITAL COURSE: Ms. Stephenson is a 28-year-old female, who was admitted to our service on 0 02/24/19 with acute cholecystitis. She went to the operating room, underwent a laparoscopic cholecyst ectomy. Please see operative report for details. She spent the night and continued on antibiotics t hrough the night with IV fluids and pain management. On postoperative day 1, the patient was evaluated. She was afebrile. Vital signs were stable. Aler t and oriented x3, in no apparent distress. Lungs: Clear to auscultation bilaterally. Abdomen: So ft, nondistended. Tender at the incision site with clean, intact dressing. Extremities: Within nor mal limits. No calf tenderness. IMPRESSION: On postoperative day 1, laparoscopic cholecystectomy for diagnosis of acute cholecystiti s. The patient will be discharged home with narcotic, sent to the pharmacy. She will follow up in o offices and with her primary care doctor. She will be discharged home in stable condition. [id number]/[facility] #: [id number]
[2019-02-25 11:17] VITALS: BP 124/77
== END 2019-02-25 14:16 | disposition home or self-care (01) | DRG 263 ==
LOC: ED 04:48 → SSU 12:23
PROVIDERS: ADMIT Surgery; ATTEND Surgery
PROC: 0FT44ZZ Resection of Gallbladder, Percutaneous Endoscopic Approach (ICD-10-PCS; principal; 2019-02-24 15:00)
DX: K80.00 Calculus of gallbladder with acute cholecystitis without obstruction (principal); J45.909 Unspecified asthma, uncomplicated; R62.50 Unspecified lack of expected normal physiological development in childhood; F40.240 Claustrophobia; K83.8 Other specified diseases of biliary tract; Z87.442 Personal history of urinary calculi; Z82.49 Family history of ischemic heart disease and other diseases of the circulatory system; Z56.0 Unemployment, unspecified; Z82.0 Family history of epilepsy and other diseases of the nervous system
CPT/HCPCS: 36415; 74176; 76705; 80053; 81003; 83605; 83690; 84702; 85025; 86140; 87040; 88304; 99285; A9270-GY; J0330; J1100; J1170; J1885; J2250; J2270; J2405; J2543; J2704; J3010